=== PATIENT | female | born 1990 | race Caucasian/White ===

== ENCOUNTER 2018-12-20 13:39 | Emergency (ER) | payer MEDICAID, OTHER ==
[~2018-12-20] VITALS: Ht 167.6 cm; Wt 94.0 kg
[2018-12-20 15:07] LABS: BASOPHILS % 0.6 % (0.0-2.0); EOSINOPHILS % 0.8 % (0.0-5.0); HEMATOCRIT. 37.6 % (36.0-48.0); HEMOGLOBIN. 12.7 g/dL (12.0-16.0); LYMPHOCYTES % 23.8 % (20.0-50.0); MEAN CORPUSCULAR VOLUME 89.2 fL (81.0-99.0); MEAN PLATELET VOLUME 9.8 fl (7.4-10.4); NEUTROPHILS % 68.8 % (40.0-76.0); PLATELET 261 x1000/uL (130-400); RED BLOOD CELL COUNT 4.22 mill/uL (4.2-5.4); RED CELL DISTRIBUTION WIDTH 13.7 % (11.6-14.6)
[2018-12-20 15:13] LABS: CHLORIDE 108 mEq/L (98-107)
[2018-12-20 15:17] LABS: HCG SCREEN NEGATIVE
[2018-12-20] MEDS ORDERED: VISCOUS LIDOCAINE 2% 15 ML UDC PO STA (15:35)
[2018-12-20] MEDS ORDERED: ONDANSETRON HCL 4MG/2ML INJ IV STA (15:35)
[2018-12-20] MEDS ORDERED: MAGNESIUM/ALUMINUM HYDROXIDE/SIMETHICONE 30ML UDC PO STA (15:35)
[2018-12-20] MEDS ORDERED: KETOROLAC 30MG/ML VIAL IV ONE (16:45)
[2018-12-20] MEDS ORDERED: HYDROCODONE/ACETAMINOPHEN 5/325MG TABLET PO ONE ×2 (17:45→20:00)
[2018-12-20 18:47] LABS: CLARITY URINE TURBID (CLEAR); COLOR URINE YELLOW (YELLOW); KETONES URINE 1+ (NEGATIVE); LEUKOCYTE ESTERASE URINE 1+ (NEGATIVE); NITRITE URINE NEGATIVE (NEGATIVE); OCCULT BLOOD URINE NEGATIVE (NEGATIVE); PH URINE 8.5 (4.5-8.0); PROTEIN URINE NEGATIVE (NEGATIVE); SPECIFIC GRAVITY URINE 1.021 (1.005-1.030); UROBILINOGEN URINE 0.2 E.U./dL (0.2-1.0)
[2018-12-20 20:00] VITALS: BP 120/70
== END 2018-12-20 20:04 | disposition home or self-care (01) ==
LOC: ER 14:01
DX: M94.0 Chondrocostal junction syndrome [Tietze] (principal); R10.13 Epigastric pain
CPT/HCPCS: 36415; 71045; 74018; 80053; 81003; 81025; 83690; 84703; 85025; 93005; 96374; 96375; 99284; J1885; J2405